=== PATIENT | male | born 1965 | race Caucasian/White ===

== ENCOUNTER → 2024-09-07 14:32 | Outpatient (REF) | payer OTHER, SELFPAY | LOC: MRI 3T 14:32 | PROVIDERS: ATTENDING PHYSICIAN Urology; FAMILY PHYSICIAN Family Medicine | DX: R97.20 Elevated prostate specific antigen [PSA] (principal) | CPT/HCPCS: 72197; A9575 ==

== ENCOUNTER → 2024-09-30 11:31 | Outpatient (REF) | payer OTHER, SELFPAY | LOC: HWRAD 11:31 | PROVIDERS: ATTENDING PHYSICIAN Urology; FAMILY PHYSICIAN Family Medicine | DX: R31.21 Asymptomatic microscopic hematuria (principal) | CPT/HCPCS: 74178; Q9967 ==

== ENCOUNTER → 2025-09-22 10:16 | Outpatient (REF) | payer OTHER, SELFPAY | LOC: MRI 3T 10:16 | PROVIDERS: ATTENDING PHYSICIAN Urology; FAMILY PHYSICIAN Family Medicine | DX: R97.20 Elevated prostate specific antigen [PSA] (principal) | CPT/HCPCS: 72197; A9575 ==